=== PATIENT | male | born 1965 | race Caucasian/White ===

== ENCOUNTER 2019-09-19 10:27 | Day surgery (SDC) | payer BC ==
[2019-09-17 17:00] VITALS: BMI 27.9
[~2019-09-19 10:27] MED LIST: LACTATED RINGERS 1,000 ML IV SCH; LIDOCAINE 1% (10MG/ML) FOR IV START INTRADERMA PRN
[2019-09-19 10:50] VITALS: TEMP 97
[2019-09-19] MEDS ORDERED: PROPOFOL 10 MG/ML 20 ML VIAL IV ONE (11:45)
--- NOTE | 2019-09-19 12:05 | P.GSHP ---
History of Present Illness H&P Date: 09/19/19 Chief Complaint: Screening colonoscopy This a 54-year-old male presents today for screening colonoscopy. Patient denies a significant GI complaints.. Past Medical History Past Medical History: Hypertension, Seizure Disorder, Skin Disorder Additional Past Medical History / Comment(s): hx heart murmur, thinks might have sleep apnea-but no study done, possibly couple colon polyps in past, kidney stones, head injury 1989-caused petit mal seizures-used to take medication but not anymore-last seizure years ago, psoriasis, current back problems-just took steroids for, spinal stenosis & weakness in legs History of Any Multi-Drug Resistant Organisms: None Reported Additional Past Surgical History / Comment(s): epigastric hernia surg., torn tendon repair left wrist Past Anesthesia/Blood Transfusion Reactions: No Reported Reaction Smoking Status: Current every day smoker Medications and Allergies Home Medications Medication Instructions Recorded Confirmed Type Cyclobenzaprine [Flexeril] 10 mg PO TID PRN 09/17/19 09/19/19 History lisinopriL [Prinivil] 20 mg PO AC-SUPPER 09/17/19 09/19/19 History Allergies Allergy/AdvReac Type Severity Reaction Status Date / Time Penicillins Allergy Rash/Hives Verified 09/19/19 10:44 Surgical - Exam Vital Signs Temp Pulse Resp BP Pulse Ox 97.0 F L 91 16 151/85 98 09/19/19 10:49 09/19/19 10:49 09/19/19 10:49 09/19/19 10:49 09/19/19 10:49 - General well developed, well nourished, no distress - Eyes PERRL - ENT normal pinna - Neck no masses - Respiratory normal expansion - Cardiovascular Rhythm: regular - Abdomen Abdomen: soft, non tender Assessment and Plan Assessment: We'll perform screening colonoscopy
--- NOTE | 2019-09-19 12:24 | P.OP ---
Date of Procedure: 09/19/19 Preoperative Diagnosis: Screening colonoscopy Postoperative Diagnosis: Diverticulosis Colon polyp at 50 cm Procedure(s) Performed: Colonoscopy Anesthesia: MAC Surgeon: Luis Pereyra Pathology: other (Polyp at 50 cm) Condition: stable Disposition: PACU Description of Procedure: Patient's placed on the endoscopy table in the lateral position. He received IV sedation. Digital rectal exam was performed which revealed minimal internal hemorrhoids. The flexible colonoscope was then placed patient anus and passed throughout the entire colon. The ileocecal valve was. The cecum, ascending and transverse colon appeared normal. In the descending colon was a few scattered diverticula. At the 50 cm mirtha there was a small sessile polyp. This removed with the forcep. A biopsy was performed. With the cold forcep. Scope was withdrawn remainder of the sigmoid colon was examined a few scattered div erticula were seen. The rectum was normal. Scope was withdrawn for patient.
[2019-09-19 13:07] VITALS: BP 140/91; PULSE 75; RESP 16
== END 2019-09-19 13:08 | disposition home or self-care (01) ==
LOC: ORWHC2ENDO 10:27
PROVIDERS: ATTEND Surgery
DX: Z12.11 Encounter for screening for malignant neoplasm of colon (principal); K63.5 Polyp of colon; K57.30 Diverticulosis of large intestine without perforation or abscess without bleeding; K64.8 Other hemorrhoids; I10 Essential (primary) hypertension; L40.9 Psoriasis, unspecified; G40.909 Epilepsy, unspecified, not intractable, without status epilepticus; F17.200 Nicotine dependence, unspecified, uncomplicated; Z86.010 Personal history of colon polyps; Z87.442 Personal history of urinary calculi; Z88.0 Allergy status to penicillin; Z79.899 Other long term (current) drug therapy
CPT/HCPCS: 88305; 45380; J2704

== ENCOUNTER 2024-08-29 07:04 | Day surgery (SDC) | payer BC, MEDICARE ==
[2024-08-26 15:36] VITALS: BMI 28.6
[~2024-08-29 07:04] MED LIST changes: +ALPRAZolam 0.25 MG TAB PO PRN; +ALPRAZolam 0.5 MG TAB PO PRN; +HEPARIN SODIUM,PORCINE (1 ML) 2,500 UNIT in SODIUM CHLORIDE 0.9% 250 ML IRRIGATION PRN; +HEPARIN SODIUM,PORCINE 10,000 UNIT in SODIUM CHLORIDE 0.9% 1,000 ML IRRIGATION PRN; -LACTATED RINGERS 1,000 ML IV SCH; -LIDOCAINE 1% (10MG/ML) FOR IV START INTRADERMA PRN; +ZOLPIDEM 5 MG TAB PO PRN
[2024-08-29 07:32] LABS: Glucose,Whole Blood 105 mg/dL (70-110)
[2024-08-29] MEDS: IV FLUID CONTINUATION 1,000 ML IV ONE (07:32)
[2024-08-29 07:40] VITALS: RESP 16; TEMP 97.5
[2024-08-29] MEDS: EMPTY BAG 1 BAG with SODIUM CHLORIDE 0.9% 1,000 ML IV SCH (07:45)
[2024-08-29] MEDS: MIDAZOLAM 2 MG/2 ML VIAL IVP ONE (09:00)
[2024-08-29] MEDS: fentaNYL (PF) 50 MCG/1 ML VIAL IVP ONE (09:00)
[2024-08-29] MEDS: LIDOCAINE 1% INJ 10MG/ML (20 ML MDV) SQ ONE (09:00)
[2024-08-29 09:01] LABS: Basophils # (A) 0.07 10*3/uL (0.00-0.10); Basophils % (A) 0.8 %; Eosinophils # (A) 0.32 10*3/uL (0.04-0.35); Eosinophils % (A) 3.9 %; HCT 45.5 % (39.6-50.0); HGB 16.0 g/dL (13.0-17.0); Lymphocytes # (A) 2.12 10*3/uL (0.90-5.00); Lymphocytes % (A) 25.7 %; MCH 32.1 pg (27.0-32.0); MCHC 35.2 g/dL (32.0-37.0); MCV 91.2 fL (80.0-97.0); Monocytes # (A) 0.48 10*3/uL (0.20-1.00); Monocytes % (A) 5.8 %; Neutrophils # (A) 5.23 10*3/uL (1.80-7.70); Neutrophils % (A) 63.4 %; Platelet Count 247 10*3/uL (140-440); RBC 4.99 10*6/uL (4.40-5.60); RDW 11.8 % (11.5-14.5); WBC 8.25 10*3/uL (4.50-10.00)
[2024-08-29 09:12] LABS: African American GFR (CKD) >90 (>60 ml/min/1.73 sqM); Anion Gap 12 mmol/L; Blood Urea Nitrogen 17 mg/dL (9-20); Calcium 9.9 mg/dL (8.4-10.2); Carbon Dioxide 19 mmol/L (22-30); Chloride 111 mmol/L (98-107); Glucose 106 mg/dL (74-99); Non-African American GFR(CKD) >90 (>60 ml/min/1.73 sqM); Potassium 4.5 mmol/L (3.5-5.1); Sodium 142 mmol/L (137-145)
[2024-08-29] MEDS: HEPARIN SODIUM 1,000 UN/ML (10ML VL) IV ONE (09:16)
[2024-08-29] MEDS: IOPAMIDOL-370 100ML BTL INJ ONE ×3 (10:24→10:25)
[2024-08-29] MEDS: CLOPIDOGREL 75 MG TAB PO ONE (10:29)
--- NOTE | 2024-08-29 11:09 | P.OP ---
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 Postoperative Diagnosis: Same Procedure(s) Performed: Ultrasound-guided bilateral common femoral artery access Aortogram with selective iliac angiogram bilaterally Percutaneous transluminal balloon angioplasty of the right common and external iliac artery Percutaneous transluminal balloon angioplasty of the left external and internal iliac artery Percutaneous transluminal stenting of the right common and external iliac artery with 8 x 120 mm Zilver PTX and balloon expandable 8 x 57 mm stent Percutaneous closure of bilateral common femoral arteries with Vascade closure device Conscious sedation x 1 hour and 55 minutes Anesthesia: local Surgeon: Harish Shirley Estimated Blood Loss (ml): 10 Pathology: none sent Condition: stable Disposition: PACU Indications for Procedure: 59-year-old gentleman with history of claudication with recent CT angiogram abdomen pelvis with runoff demonstrating right common iliac and external iliac artery occlusion with reconstitution just above the inguinal ligament as well as stenosis of the internal and external iliac artery on the right. He presents today for elective attempt at revascularization of the right iliac artery. 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 The area of the bilateral groins were prepped and draped in the usual sterile fashion. Local anesthesia with moderate sedation was performed with continuous pulse ox monitoring and EKG monitoring. Utilizing ultrasound the bilateral common femoral arteries were visualized and shown to be patent without any significant plaque. Utilizing a multipurpose needle under ultrasound guidance the arteries were accessed. Guidewire was placed followed by 6 [place] sheath. Retrograde angiogram was then obtained demonstrating complete occlusion of the common iliac artery just after the takeoff of the internal iliac artery on the right. 035 Glidewire was then placed into the aorta via the left followed by chavez's hook catheter. Angiogram was then obtained of the aorta and bilateral iliac arteries demonstrating occlusion just after the takeoff of the right common iliac artery. Attempt at crossing from the right common femoral artery was performed without success and therefore the sheath on the left was changed to a steerable sheath and placed in the aorta. Utilizing the 035 Glidewire and crossing catheter the lesion was crossed with selective angiogram at the common femoral artery demonstrating good intraluminal access. The wire was then guided into the existing 6 [place] sheath and pulled externally in a body floss manner. Sheath was then placed again in the right common femoral artery followed by the quick cross catheter which was placed in an up and over fashion towards the left and the wire was removed. 035 Glidewire was then placed within the quick cross catheter and directed into the aorta. Angiogram was then obtained demonstrating good intraluminal access into the aorta. Balloon angioplasty was then performed with a 5 x 100 mm balloon across the lesion. Lesion was measured and shown to be roughly 120 mm. An 8 x 120 mm Zilver PTX stent was then chosen to be deployed extending from the distal aspect towards the bifurcation. This was slightly shorter than needed and therefore an 8 x 57 mm balloon expandable stent was also placed at the bifurcation of the iliac artery. Areas of overlap were also ballooned. Angiogram was obtained demonstrating brisk flow and complete resolution of the occlusion on the right. Attention was then placed to the left and the 5 x 100 mm balloon was used to balloon the external iliac artery just after the takeoff. In an up and over fashion from the right the left internal iliac artery was also accessed with a Glidewire and balloon angioplasty with a 5 x 20 mm balloon was performed. Once completed final angiogram was obtained demonstrating brisk flow throughout the entirety of the iliacs bilaterally with some improvement of the internal iliac artery stenosis with a residual of roughly 20 to 30%. There was a small dissection that was not flow-limiting noted just after the takeoff of the internal iliac artery adjacent to and may have been involving a small branch. Due to the nonflow limiting nature of the small dissection this was left and not stented due to the fact that it is crossing over the internal iliac artery takeoff. Once completed all guidewires, catheters and sheaths were removed and Vascade's were placed bilaterally and pressure was placed for hemostasis. Patient tolerated procedure well had palpable DP and PT pulses bilaterally and was sent to PACU for recovery
[2024-08-29] MEDS: ACETAMINOPHEN TAB 325 MG TAB PO STA (11:38)
--- NOTE | 2024-08-29 13:24 | IR ---
EXAMINATION TYPE: IR stent intravas non coronary DATE OF EXAM: 08/29/2024 12:54 PM COMPARISON: Pre Operative Images if available both CT/MRI or plain film CLINICAL INDICATION: Male, 59 years old with history of RIGHT LEG PAIN, 31.4M/284DAP, BILATERAL VASCA RAFY; TECHNIQUE: IR stent intravas non coronary, multiple fluoroscopic images provided for procedure. DAP: 31.4 mGym2 Gycm2 uGym2 cGycm2 or equivalent. FINDINGS: IMPRESSION: 1. Report was generated for administrative purposes only. 2. Please see the operative/procedural note for further details. [facility], , 08/29/2024 1:21 PM
[2024-08-29 15:16] VITALS: BP 130/80; PULSE 56
== END 2024-08-29 16:35 | disposition home or self-care (01) ==
LOC: CATHCVL 07:04
PROVIDERS: ATTEND Surgery
DX: I70.213 Atherosclerosis of native arteries of extremities with intermittent claudication, bilateral legs (principal); I74.5 Embolism and thrombosis of iliac artery; G62.9 Polyneuropathy, unspecified; G89.29 Other chronic pain; Z79.02 Long term (current) use of antithrombotics/antiplatelets; Z79.899 Other long term (current) drug therapy; Z88.0 Allergy status to penicillin
CPT/HCPCS: 37220; 37221; 37222; 76937; 80048; 85025; 99152; 99153; C1894 ×4; C1769 ×4; C1725 ×2; C1887; C1876; C1874; C1760; J2250; J2003; J1644; Q9967; J3010